=== PATIENT | female | born 1965 | race Caucasian/White ===

== ENCOUNTER 2019-06-01 10:56 | Day surgery (SDC) | payer MEDICARE, SELFPAY ==
--- NOTE | 2019-05-31 19:53 | PCM.HP.BLA ---
History and Physical Date of Admission: 06/01/19 Chief Complaint: Screening for colon cancer via colonoscopy History of Present Illness: 53 y/o WF presents for screening for colon cancer via colonoscopy. Denies previous colonoscopy. Denies blood in stools. Denies changes in bowel habits. Denies abdominal pain. No colon cancer known in immediate family, sister had breast cancer. Past Medical History: Chiari I malformation dysphagia due to thyroid mass esophageal motility disorder hiatal hernia chronic hoarseness hypertension morbid obesity s/p bariatric surgery hyperthyroidism on methimazole chronic weakness Obstructive sleep apnea Past Surgical History: vocal cord implants breast surgery cholecystectomy endometrial ablation deviated nasal septal surgery brain irradiation sleeve gastrectomy - bariatric surgery tubes tied ear tubes Medications: cymbalta Allergies: Has no known drug allergies Social history: TOB use denies ETOH use minimal, occasional social only REVIEW OF SYSTEMS: General: The patient NOTES fatigue, denies weight loss, denies weight gain, denies feeling hot, and denies feelings of cold. Eyes: The patient denies glaucoma, denies eye injury/surgery, wears glasses or contacts. Ear/Nose/Throat: The patient denies allergies, denies hayfever, denies ear infections, and denies bloody noses. Cardiovascular: The patient denies chest pain, denies heart disease, NOTES high blood pressure,denies cardiac stent, denies prior heart attack, denies irregular heart beat, denies high cholesterol, denies poor circulation, denies heart failure, other cardiac issues, denies claudication, denies cold feet, denies peripheral arterial stent. Respiratory: The patient denies tuberculosis, denies pneumonia, denies frequent cough, denies pulmonary embolism, denies shortness of breath, and denies coughing up blood. Gastrointestinal: The patient NOTES difficulty swallowing, denies acid reflux, denies ulcers, denies vomiting, denies jaundice/hepatitis, denies gallbladder problems, denies black or tarry stools, NOTES hemorrhoids, NOTES bleeding from rectum, denies diverticulitis, denies constipation, denies diarrhea, denies loss of stool control, and denies hernias. Kidney/Bladder: The patient denies kidney stones, denies urine infections, and denies bloody urine. Skin: The patient denies a history of skin cancer, denies bleeding/changing moles, and denies a history of skin rash. Neurologic: The patient denies a history of epilepsy/convulsions, NOTES headaches, denies head/spinal injuries, and denies stroke/TIA. Psychiatric: The patient denies psychiatric medications, denies depression, and denies voices, denies substance abuse. Endocrine: The patient NOTES thyroid disorders, denies diabetes, and denies hormonal problems. Hematologic: The patient denies a history of bruising, denies bleeding, and denies anemia, denies blood clots. Infections: The patient denies a history of measles and mumps, denies rheumatic fever, and denies sexually transmitted diseases. Musculoskeletal: The patient denies back pain/injury, denies back problems, denies sciatica, denies knee/foot trouble, denies arthritis, or denies gout. Physical examination: Vital signs Ht: 5'10 Wt 306# GENERAL: pleasant, female in no apparent distress HEENT: Normocephalic, atraumatic, mucus membranes moist and no lesions NECK: Supple, full range of motion, no adenopathy and thyroid normal DERMATOLOGY: Normal, without lesions, non-icteric and non-hirsute BREAST: soft, non-tender, symmetric, no dominant mass, normal nipple-areolar complex, no lymphadenopathy and no nipple discharge- well healed scars ABDOMEN: soft, non-tender and no masses RECTOVAGINAL: deferred. NEURO: alert and oriented x3,exam grossly non-focal EXTREMITIES: normal Impression: screening for colon cancer via colonoscopy Discussion/Plan: I have discussed the above with the patient. I have offered the patient the procedure of colonoscopy, possible biopsies I have explained the procedure to the patient. I have counseled the patient as to the risks of the procedure, including but not limited to: infection, bleeding, injury to any intraabdominal organs such as liver/spleen, perforation of the GI tract, complications of anesthesia, etc. - she understands. She agrees to proceed. I have answered all questions to the patient?s satisfaction and the patient has no further questions.
--- NOTE | 2019-06-01 | COLBX_PTH ---
PATIENT: DENISSE ANDERSON LOC: EN U#:[id number] AGE/SX: 53/F ROOM: RE06/01/[address]: Dr. Inez Jacques MD : [id number] BED: DIS: 06/01/2019 SPEC #: [id number] RECD: 06/01/19 13:52 STATUS: JODI RERaghav #: [id number] CHRIS: 06/01/19 00:[address]: Inez Jacques DEPT: SURGICAL PATHOLOGY RECD BY: Dago Quiroz ENTERED: 06/01/19 13:52 SP TYPE: COLON BX OTHR DR: Out of Town Doctor Tissues: COLON BIOPSY Procedures: Surgery Specimen Level IV HEADER OPERATION: Colonoscopy (MAC) PRE-OP DIAGNOSIS: Screening TISSUE SUBMITTED: Left colon polyp MICROSCOPIC DIAGNOSIS Left colon polyp, biopsy: Fragments of tubular adenoma. AM:micheline 06/02/19 COMMENT Case has been reviewed in consultation with Dr. Faith who concurs with the above diagnosis. IDC:RON MICROSCOPIC DESCRIPTION Slides are reviewed. GROSS DESCRIPTION Received in fixative is one container labeled with the patient's name and designated left colon polyp. The specimen consists of multiple irregular fragments of light horan soft tissue that in aggregate measure 0.5 x 0.4 x 0.1 cm. The specimen is totally submitted in one cassette. / RON:micheline 06/01/19 TC:4 CPT: 70444
[2019-06-01 11:18] VITALS: BP 141/79; PULSE 71; RESP 16; TEMP 37.2; O2SAT 97; BMI 43.2
[2019-06-01] MEDS: Lactated Ringers 1,000 ML 100 ML IV ×2 (11:38→13:12)
[2019-06-01 13:20] VITALS: BP 123/65; BP 141/79; PULSE 80; RESP 18; TEMP 36.5
--- NOTE | 2019-06-01 13:21 | OP.ENDO_ITS ---
06/01/2019 Alirezaberonica Serrano Re : Colonoscopy procedure for Ana Lilia Rodriguez Dear Maggie This procedure was performed on May. My impressions and recommendations are as follows: Impressions : - Preparation of the colon was poor but extra time in cleaning the colon was done, such that the colon could be cleared.. - One 5 to 10 mm polyp in the descending colon, removed with a hot snare. Resected and retrieved. - Non-bleeding external and internal hemorrhoids. Recommendations : - Repeat colonoscopy date to be determined after pending pathology results are reviewed for surveillance based on pathology results. - My office will telephone with pathology results in 1-2 weeks - Continue present medications. My findings are described in the full procedure note, which is enclosed. If I can be of further assistance, please feel free to contact me at Doctor phone number(s): , Work: . Sincerely, MD Inez Person MD 06/01/2019 1:20:45 PM This report has been signed electronically.
[2019-06-01 13:24] VITALS: BP 116/72; BP 141/79; PULSE 80; RESP 16; O2SAT 100
[2019-06-01 13:30] VITALS: BP 123/79; BP 141/79; PULSE 73; RESP 16; TEMP 36.3; O2SAT 100
[2019-06-01 14:01] VITALS: BP 141/79
== END 2019-06-01 14:01 | disposition home or self-care (01) ==
LOC: EN 10:57 → AC 10:59
PROVIDERS: Referring Provider Surgery; Visit Provider Surgery
PROC: 0DJD8ZZ Inspection of Lower Intestinal Tract, Via Natural or Artificial Opening Endoscopic (ICD-10-PCS; CPT 45378; principal; 2019-06-01 11:55)
DX: Z12.11 Encounter for screening for malignant neoplasm of colon (principal); K64.8 Other hemorrhoids; D12.4 Benign neoplasm of descending colon; G93.5 Compression of brain; I10 Essential (primary) hypertension; E66.01 Morbid (severe) obesity due to excess calories; G47.33 Obstructive sleep apnea (adult) (pediatric); Z98.84 Bariatric surgery status; Z79.899 Other long term (current) drug therapy; K22.4 Dyskinesia of esophagus
CPT/HCPCS: 45385; 88305; J7120; J2405